=== PATIENT | male | born 1955 | race African-American/Black ===

== ENCOUNTER 2017-02-12 21:59 | Observation (INO) | payer MEDICAID ==
[~2017-02-12] VITALS: Ht 185.4 cm; Wt 106.6 kg
[2017-02-12] MEDS ORDERED: ASPI-1035 PO (22:09)
[2017-02-12] MEDS ORDERED: CLON0.1T PO (22:09)
[2017-02-12 23:53] LABS: BASOPHILS % 0.7 % (0.0-2.0); EOSINOPHILS % 5.7 % (0.0-5.0); HEMATOCRIT. 36.6 % (42.0-52.0); HEMOGLOBIN. 12.3 g/dL (14.0-18.0); LYMPHOCYTES % 12.3 % (20.0-50.0); MEAN CORPUSCULAR HEMOGLOBIN 29.6 pg (28.0-32.0); MEAN CORPUSCULAR HGB CONC 33.5 g/dL (31.0-37.0); MEAN CORPUSCULAR VOLUME 88.2 fL (80.0-94.0); MEAN PLATELET VOLUME 7.4 fl (7.4-10.4); MONOCYTES % 13.9 % (2.0-8.0); NEUTROPHILS % 67.4 % (40.0-76.0); PLATELET 216 x1000/uL (130-400); RED BLOOD CELL COUNT 4.15 mill/uL (4.7-6.1); RED CELL DISTRIBUTION WIDTH 14.5 % (11.6-14.6); WHITE BLOOD COUNT 4.8 x1000/uL (4.5-11.0)
[2017-02-13 00:02] LABS: INR 1.1; PARTIAL THROMBOPLASTIN TIME 24.6 sec (24.0-34.0); PROTHROMBIN TIME 11.3 sec
[2017-02-13 00:10] LABS: ALANINE AMINOTRANSFERASE 12 IU/L (13-61); ALBUMIN 2.9 g/dL (3.4-5.0); ANION GAP 15; CALCIUM 8.1 mg/dL (8.5-10.1); CARBON DIOXIDE 29 mEq/L (21-32); CHLORIDE 95 mEq/L (98-107); INDEX HEMOLYSI 1 (1-3); INDEX ICTERIC 1 (1-4); INDEX LIPEMIC 1 (1-3); TROPONIN I < 0.02 ng/mL (0.00-0.04); UREA NITROGEN BLOOD 22 mg/dL (7-21); eGFR 16 mL/min (>60)
[2017-02-13 05:00] VITALS: BP 133/109
[2017-02-13 08:00] VITALS: BP 138/88
[2017-02-13 10:20] VITALS: BP 138/88
== END 2017-02-13 10:35 | disposition home or self-care (01) ==
LOC: ER 22:34 → 7WST 02-13 00:40 → INTOOBSV 02-13 00:40
PROVIDERS: ADMIT Internal Medicine Pulmonary Disease; ATTEND Internal Medicine Pulmonary Disease
DX: T46.5X1A Poisoning by other antihypertensive drugs, accidental (unintentional), initial encounter (principal); I13.2 Hypertensive heart and chronic kidney disease with heart failure and with stage 5 chronic kidney disease, or end stage renal disease; G93.40 Encephalopathy, unspecified; E43 Unspecified severe protein-calorie malnutrition; B20 Human immunodeficiency virus [HIV] disease; R55 Syncope and collapse; N18.6 End stage renal disease; I50.9 Heart failure, unspecified; J44.9 Chronic obstructive pulmonary disease, unspecified; F20.9 Schizophrenia, unspecified; D64.9 Anemia, unspecified; F12.90 Cannabis use, unspecified, uncomplicated; Z86.11 Personal history of tuberculosis; F17.200 Nicotine dependence, unspecified, uncomplicated; Z99.2 Dependence on renal dialysis; Z83.3 Family history of diabetes mellitus; Z91.19 Patient's noncompliance with other medical treatment and regimen; Z84.1 Family history of disorders of kidney and ureter; Z90.49 Acquired absence of other specified parts of digestive tract; X58.XXXA Exposure to other specified factors, initial encounter; Y92.090 Kitchen in other non-institutional residence as the place of occurrence of the external cause; Y93.89 Activity, other specified; Y99.8 Other external cause status
CPT/HCPCS: 36415; 70450; 71010; 80053; 83735; 84100; 84484; 85025; 85610; 85730; 87040; 93005; 99291; G0378